=== PATIENT | male | born 1980 | race Caucasian/White ===

== ENCOUNTER 2021-01-17 14:20 | Emergency (ER) | payer SELFPAY ==
[2021-01-17] MEDS ORDERED: CYCLOBENZAPRINE10 MG PO (15:29)
[2021-01-17] MEDS ORDERED: NAPROSYN500 MG PO (15:29)
== END 2021-01-17 15:40 | disposition home or self-care (01) ==
LOC: ER1 14:20
DX: M54.12 Radiculopathy, cervical region (principal); F17.200 Nicotine dependence, unspecified, uncomplicated; K21.9 Gastro-esophageal reflux disease without esophagitis
CPT/HCPCS: 99283; J1100; J1885